=== PATIENT | female | born 2000 | race Hispanic/Latino ===

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

== ENCOUNTER 2022-02-16 15:19 | Emergency (ER) | payer OTHER ==
[2022-02-16] MEDS ORDERED: Lidocaine 1% PF 5 ML VIAL ONE (16:50)
[2022-02-16] MEDS ORDERED: Ketorolac Tromethamine 30 MG/ML VIAL ONE (17:17)
== END 2022-02-16 17:38 | disposition home or self-care (01) ==
LOC: ERS 15:19
DX: N75.1 Abscess of Bartholin's gland (principal)
CPT/HCPCS: 56420; 96372; J1885